=== PATIENT | male | born 1975 | race Caucasian/White ===

== ENCOUNTER 2019-07-02 04:19 | Emergency (ER) | payer SELFPAY ==
[~2019-07-02] VITALS: Ht 175.3 cm; Wt 74.8 kg
[2019-07-02 04:22] VITALS: Ht 175.3 cm; Wt 74.8 kg
[2019-07-02 05:18] LABS: BASOPHIL % 0.4 % (0-2); PLATELET COUNT 206 x10^3mcL (130-400); RED CELL DISTRIBUTION WIDTH 13.5 % (11.5-14.5)
[2019-07-02 05:47] LABS: ALBUMIN 4.1 g/dL (3.4-5.0); CALCIUM 8.3 mg/dL (8.5-10.1); CARBON DIOXIDE 29.5 mmol/L (21-32); CHLORIDE SERUM 103 mmol/L (98-107); CREATININE SERUM 0.8 mg/dL (0.7-1.3); GFR1 > 60 mL/min; GLUCOSE SERUM 107 mg/dL (74-106); POTASSIUM SERUM 5.2 mmol/L (3.5-5.1); SODIUM SERUM 140 mmol/L (136-145); TOTAL PROTEIN, SERUM 7.8 g/dL (6.4-8.2)
[2019-07-02 05:48] LABS: ALKALINE PHOSPHATASE 81 U/L (46-116); ALT/SGPT 25 U/L (16-63); AST/SGOT 23 U/L (15-37); BILIRUBIN TOTAL 0.18 mg/dL (0.20-1.00)
[2019-07-02 05:49] LABS: AMPHETAMINE QUAL UR NONE DETECTED (See below)
[2019-07-02 06:38] VITALS: BP 124/84
== END 2019-07-02 06:35 | disposition home or self-care (01) ==
LOC: ED 04:19
PROVIDERS: Emergency Medicine
DX: Z88.5 Allergy status to narcotic agent (principal); F10.129 Alcohol abuse with intoxication, unspecified
CPT/HCPCS: 36415; 82962; G0480; J7030